=== PATIENT | male | born 1950 ===

== ENCOUNTER 2018-11-09 12:22 | Outpatient (RCR) | payer MEDICARE ==
[~2018-11-09 12:22] MED LIST: LIDOCAINE/PRILOCAINE 2.5-2.5% KIT ONE; MUPIROCIN 2% OINT 22 GM TUBE ONE
[2018-11-09] MEDS ORDERED: LIDOCAINE/PRILOCAINE 2.5-2.5% KIT ONE (16:32)
== END 2018-11-22 ==
LOC: WCC 12:22
PROVIDERS: ATTEND Family Medicine
DX: S91.001A Unspecified open wound, right ankle, initial encounter (principal); R60.9 Edema, unspecified; I87.2 Venous insufficiency (chronic) (peripheral); I70.90 Unspecified atherosclerosis; W45.8XXA Other foreign body or object entering through skin, initial encounter
CPT/HCPCS: 87071; 87075; 87186; 87205